=== PATIENT | female | born 1965 | race Caucasian/White ===

== ENCOUNTER 2017-01-30 22:33 | Emergency (ER) | payer OTHER ==
--- NOTE | ~2017-01-30 | EKG ---
PATIENT: PAU BAUMAN UNIT #: [id number] Ventricular Rate: 89 BPM Atrial Rate: 89 BPM P-R Interval: 178 ms QRS Duration: 84 ms Q-T Interval: 398 ms QTC Calculation(Bezet): 484 ms P Simms: 56 degrees Calculated R Simms: -34 degrees Calculated T Simms: 39 degrees Diagnosis Line: Normal sinus rhythm Diagnosis Line: Possible Left atrial enlargement Diagnosis Line: Left axis deviation Diagnosis Line: Inferior infarct , age undetermined Diagnosis Line: Abnormal ECG Diagnosis Line: When compared with ECG of 24-MAY-2015 21:10, Diagnosis Line: Inferior infarct is now Present Diagnosis Line: Confirmed by NGOC JUAN MD ([id number]) on 01/31/2017 Diagnosis Line: 5:46:15 PM INTERPRETING MD: YESSICA QUEVEDO
[~2017-01-30 22:33] MED LIST: CATAFLAM50 MG PO; CIPRO PO; DENTAL BALLS PO; KEFLEX500 M1 PO; LORTAB 5/500 TA1 TA1 PO; LORTAB 5/500 TA1 TA2 PO; NAPROXEN375 M1 PO; NEURONTIN PO; PEN-VEE K PO; PENICILLIN PO; PYRIDIUM PO; ROXICODONE5 MG PO; VICODIN 5/1 TAB 5/50 PO; VOLTAREN50 MG PO; ZOFRAN PO
[2017-01-30 22:52] LABS: BASOPHIL# 0.1 X10e3 (0-0.3); BASOPHIL% 1.1 % (0-2.5); DIFF IND NO; EOSINOPHIL# 0.2 X10e3 (0-0.7); EOSINOPHIL% 3.2 % (0.0-7.0); HEMATOCRIT 54.1 % (35.0-45.0); HEMOGLOBIN 17.3 gm/dL (12.0-16.0); LYMPHOCYTE% 31.3 % (17.0-45.0); MEAN CELL VOLUME 102.9 FL (83-96); MEAN CORPUSCULAR HEMOGLOBIN 32.9 PG (28-34); MEAN PLATELET VOLUME 9.3 FL (6.5-11.5); MONOCYTE# 0.5 X10e3 (0-1.0); MONOCYTE% 7.9 % (3.0-12.0); NEUTROPHIL# 3.6 X10e3 (1.5-7.1); NEUTROPHIL% 56.5 % (40-75); PLATELET COUNT 214 X10e3 (140-420); RED BLOOD COUNT 5.26 X10e (3.90-5.30); RED CELL DISTRIBUTION WIDTH 14.3 % (11.0-15.5); WHITE BLOOD COUNT 6.3 X10e3 (4.0-10.5)
[2017-01-30 23:23] LABS: ACETAMINOPHEN <10 ug/mL; ALBUMIN SERUM 4.1 g/dL (3.5-5.0); ALCOHOL BLOOD 264 mg/dL (0); ALKALINE PHOSPHATASE 74 U/L (32-92); ALT (SGPT) 61 U/L (10-40); AST (SGOT) 95 U/L (10-42); BILIRUBIN, DIRECT 0.2 mg/dL (0.0-0.2); BILIRUBIN,INDIRECT 0.4 mg/dL (0.0-0.9); BILIRUBIN,TOTAL 0.6 mg/dL (0.2-2.0); BLOOD UREA NITROGEN 8 mg/dL (9-23); BUN/CREATININE RATIO 11.42; CALCIUM SERUM 9.3 mg/dL (8.4-10.2); CARBON DIOXIDE 22 mmol/L (22-31); CHLORIDE 108 mmol/L (100-111); CREATININE SERUM 0.7 mg/dL (0.6-1.4); GLOM FILT RATE Estimated ABOVE60 mL/min (>60); GLUCOSE FASTING 95 mg/dL (70-110); POTASSIUM 3.9 mmol/L (3.5-5.1); PROTEIN TOTAL SERUM 8.4 g/dL (6.0-8.3); SALICYLATE <4.0 mg/dL; SODIUM 142 mmol/L (135-145)
[2017-05-01] MEDS ORDERED: HYDROCODON-ACE1 EAC5 PO (12:37)
[2017-05-01] MEDS ORDERED: ALBUTEROL17 GM INH (12:37)
[2017-05-01] MEDS ORDERED: GABAPENTIN300 MG PO (12:38)
[2017-05-01] MEDS ORDERED: FLEXERIL10 MG PO (12:38)
[2017-05-01] MEDS ORDERED: ADVAIR 250-501 EAC1 INH (12:38)
== END 2017-01-31 01:47 | disposition home or self-care (01) ==
LOC: CED 22:33
PROVIDERS: Emergency Medicine
DX: F10.129 Alcohol abuse with intoxication, unspecified (principal); F41.9 Anxiety disorder, unspecified; B19.20 Unspecified viral hepatitis C without hepatic coma; F17.210 Nicotine dependence, cigarettes, uncomplicated; Z86.14 Personal history of Methicillin resistant Staphylococcus aureus infection; Z88.2 Allergy status to sulfonamides
CPT/HCPCS: 36415; 80048; 80076; 85025; 93005; 96360; 99284; G0480

== ENCOUNTER 2017-04-12 12:18 | Emergency (ER) | payer OTHER ==
--- NOTE | ~2017-04-12 | CR107 ---
[facility] A Service of [facility] & [facility] [place] RADIOLOGY TEXT RESULTS PATIENT: PAU BAUMAN LOCATION: CFTX : 65 UNIT #: [id number] AGE: [address]: POLO MCCORD SEX: F ORDER DR: [id number] [facility] [address] [place], [place] [address] [id number] MR#: [id number] Acc #: [id number] NAME: PAU BAUMAN. : 1965 SEX: F STUDY DATE/TIME: 04/12/2017 14:01 UNIT: [facility] ROOM: STUDY DESCRIPTION: CR Femur 2 Views Rt Attending Physician: Polo Mccord Aprn Ordering Physician: Polo Mccord Aprn Primary Care Physician: No Primary Care Physician MEDICAL IMAGING REPORT This report is preliminary unless electronic signature is present EXAM Right femur AP and lateral HISTORY Hip and leg pain after fall 5 days ago. FINDINGS AP and lateral views of the right femur demonstrate subtle transverse nondisplaced fracture of the superior margin of the greater trochanter 1.5 cm from its proximal tip. Right hip prosthetic component alignment appears satisfactory. An acetabular fixation screw extends 2 cm beyond the medial margin of the acetabulum. Remainder of the femur is unremarkable. Dictated by... Byron Dowling M.D. THIS IS AN ELECTRONICALLY VERIFIED REPORT Byron Dowling M.D. at 04/12/2017 10:38 PM PERLA/michelle TD: 04/12/2017 17:04 JOB #: [id number] MEDICAL IMAGING REPORT Page 1 of 1 COPY
--- NOTE | ~2017-04-12 | CR151 ---
[facility] A Service of [facility] & [facility] RADIOLOGY TEXT RESULTS PATIENT: PAU BAUMAN LOCATION: CFTX : 65 UNIT #: [id number] AGE: [address]: POLO MCCORD SEX: F ORDER DR: [id number] [facility] [address] [place], [place] [address] [id number] E MR#: [id number] Acc #: [id number] NAME: PAU BAUMAN : 1965 SEX: F STUDY DATE/TIME: 04/12/2017 13:59 UNIT: [facility] ROOM: STUDY DESCRIPTION: CR Hip Min 2 Views Rt Attending Physician: Polo Mccord Aprn Ordering Physician: Polo Mccord Aprn Primary Care Physician: No Primary Care Physician MEDICAL IMAGING REPORT This report is preliminary unless electronic signature is present EXAM Right hip 2 views HISTORY Right hip pain after fall 5 days ago. FINDINGS 2 views of the right hip demonstrate subtle nondisplaced transverse fracture of the superior margin of the greater trochanter 1.5 cm from its proximal tip. The fracture line is fairly well marginated and this is of uncertain age but this could be a recent fracture. Right hip arthroplasty components appear in stable position compared to 10/04/2013 although the distal tip of the femoral component is not included. A fixation screw in the acetabular component extends 2 cm beyond the medial margin of the acetabulum. Old healed fracture deformities left pubic bone and left ischium tuberosity. IMPRESSION 1. Subtle nondisplaced transverse fracture through the superior margin of the right greater trochanter 1.5 cm from its tip. 2. Visualized prosthetic hip component alignment appears satisfactory. 3. 1 of the acetabular fixation screws extends 2 cm beyond the medial margin of the acetabulum. 4. Old healed fracture deformities left ischium tuberosity and left pubic bone. Dictated by... Byron Dowling M.D. THIS IS AN ELECTRONICALLY VERIFIED REPORT Byron Dowling M.D. at 04/12/2017 10:38 PM DFGinny/michelle STS. [facility] A Service of [facility] & [facility] RADIOLOGY TEXT RESULTS PATIENT: PAU BAUMAN LOCATION: [facility] : [birth year] UNIT #: [id number] AGE: [address]: POLO MCCORD SEX: F ORDER DR: TD: 04/12/2017 16:58 JOB #: [id number] MEDICAL IMAGING REPORT Page 1 of 1 COPY
[2017-05-01] MEDS ORDERED: HYDROCODON-ACE1 EAC5 PO (12:37)
[2017-05-01] MEDS ORDERED: ALBUTEROL17 GM INH (12:37)
[2017-05-01] MEDS ORDERED: FLEXERIL10 MG PO (12:38)
[2017-05-01] MEDS ORDERED: ADVAIR 250-501 EAC1 INH (12:38)
[2017-05-01] MEDS ORDERED: GABAPENTIN300 MG PO (12:38)
== END 2017-04-12 18:21 | disposition home or self-care (01) ==
LOC: CFTX 12:18 → CED 12:18 → CFTX 14:36
DX: S72.114A Nondisplaced fracture of greater trochanter of right femur, initial encounter for closed fracture (principal); J44.9 Chronic obstructive pulmonary disease, unspecified; F31.9 Bipolar disorder, unspecified; F17.210 Nicotine dependence, cigarettes, uncomplicated; Z88.2 Allergy status to sulfonamides; W01.0XXA Fall on same level from slipping, tripping and stumbling without subsequent striking against object, initial encounter; Y92.009 Unspecified place in unspecified non-institutional (private) residence as the place of occurrence of the external cause
CPT/HCPCS: 73502; 73552; 99284

== ENCOUNTER → 2017-05-01 | Day surgery (SDC) | payer MEDICARE, OTHER ==
[~2017-05-01] MED LIST changes: +ADVAIR 250-501 EAC1 INH; +ALBUTEROL17 GM INH; +FLEXERIL10 MG PO; +GABAPENTIN300 MG PO; +HYDROCODON-ACE1 EAC5 PO
--- NOTE | ~2017-05-01 | OR ---
Unit #: [id number] #: [id number] Patient: PAU BAUMAN [id number] [address] [place], [place] [address] [id number] O MR#: [id number] NAME: PAU BAUMAN ROOM: Date of Procedure: 05/01/2017 Admission Date: 05/01/2017 Surgeon: Eyad Rojas M.D. : 1965 Attending Physician: Eyad Rojas M.D. Primary Care Physician: Warren Agarwal M.D. SURGERY CENTER OPERATIVE NOTE PROCEDURE PERFORMED Lumbar epidural steroid injection under x-ray guided needle placement with provider administered conscious sedation. PREOPERATIVE DIAGNOSES 1. Acute lumbar radiculitis. 2. Degenerative joint disease, lumbosacral spine. 3. Degenerative disk disease, lumbosacral spine. 4. Spinal stenosis, lumbosacral spine. INDICATIONS FOR PROCEDURE The patient presents today with longstanding history of chronic lumbar radicular pain secondary to her underlying degenerative processes. She is generally fairly well managed medically with ongoing continuous conservative measures, which include anti-inflammatory medications. She has in the past experienced exacerbations, which broke through this ongoing continuous conservative treatment and did respond to epidural steroid injections with approximately 80% to 100% relief for 8 weeks or greater. She is currently experiencing exacerbation. Her last exacerbation have not occurred in 2012. She states her exacerbating pain is similar to past, it is compatible with her x-ray studies and has broken through her ongoing continuous treatment. After discussing risks and benefits of proceeding today with a lumbar approach epidural steroid injection with return to this clinic in 2 weeks, the patient agreed this would be the appropriate course of action. DESCRIPTION OF PROCEDURE She was then taken to the operating room, where she was prepped and draped in a sterile manner. Standard monitors were applied. She was sedated with 2 mg of IV Versed and lumbar epidural space accessed at the L4-L5 level using loss of resistance technique and x-ray guidance. Needle placement was confirmed with injection of 2 mL of Omnipaque. There was good superior and inferior flow at this L4-L5 level needle placement. Following successful needle placement confirmation, the patient received an injectate containing 2 mL normal saline, 2 mL of 0.25% bupivacaine, and 80 mg of methylprednisolone. She tolerated this procedure well. She was discharged home with followup instructions, which include return dates as described above. Dictated by... Eyad Rojas M.D. Unit #: [id number] #: [id number] Patient: PAU BAUMAN G/modl TD: 05/02/2017 01:23 JOB #: [id number] CC: Esau Cuadra M.D. SURGERY CENTER OPERATIVE NOTE Page 1 of 1 X Sanjay Rojas MD X PROCEDURE OPERATIVE NOTE
== END | disposition home or self-care (01) ==
LOC: CCSC 12:18
DX: G89.29 Other chronic pain (principal); M51.17 Intervertebral disc disorders with radiculopathy, lumbosacral region; M47.27 Other spondylosis with radiculopathy, lumbosacral region; M48.07 Spinal stenosis, lumbosacral region; J44.9 Chronic obstructive pulmonary disease, unspecified; I25.2 Old myocardial infarction; M19.90 Unspecified osteoarthritis, unspecified site; F17.210 Nicotine dependence, cigarettes, uncomplicated; Z88.2 Allergy status to sulfonamides; Z79.51 Long term (current) use of inhaled steroids; Z79.891 Long term (current) use of opiate analgesic; Z98.890 Other specified postprocedural states
CPT/HCPCS: J1040; J2250; J3010

== ENCOUNTER → 2017-05-15 | Day surgery (SDC) | payer OTHER ==
--- NOTE | ~2017-05-15 | OR ---
Unit #: [id number] #: [id number] Patient: PAU BAUMAN [id number] [address] [place], [place] [address] [id number] O MR#: [id number] NAME: PAU BAUMAN ROOM: Date of Procedure: 05/15/2017 Admission Date: 05/15/2017 Surgeon: Eyad Rojas M.D. : 1965 Attending Physician: Sanjay Rojas Primary Care Physician: Warren Agarwal M.D. SURGERY CENTER OPERATIVE NOTE PROCEDURE PERFORMED Lumbar epidural steroid injection under x-ray guided needle placement with provider administered conscious sedation. PREOPERATIVE DIAGNOSES 1. Acute lumbar radiculitis. 2. Chronic lumbar radicular pain. 3. Degenerative joint disease, lumbosacral spine. 4. Degenerative disk disease, lumbosacral spine. INDICATIONS FOR PROCEDURE The patient presents today status post one previous lumbar approach epidural steroid injection for an acute radiculitis, which had failed to respond to conservative therapy. The patient has previously gotten relief from epidural steroid injections from her radicular pain; however, it required more than one injection. She presents today stating that she did not get very much relief with the initial injection and what relief she did get was short lasting and since she has had return of symptoms since her initial visit. After discussing risks and benefits of proceeding today with second lumbar approach epidural steroid injection, the patient agreed this would be the appropriate course of action. We also discussed potential referral for medical management if this second epidural failed her. We did schedule her for long-term follow up on 08/21/2017, however, I doubt that Ms. Bauman will respond very well to this epidural steroid injection and suspect that she may will need to be referred on for medical management. DESCRIPTION OF PROCEDURE Following these discussions, the patient was taken to the operating room, where she was prepped and draped in sterile manner. Standard monitors were applied. She was sedated with 2 mg of IV Versed initially and required an additional 2 mg of IV Versed throughout the duration of procedure. Lumbar epidural space was accessed at the L4-L5 level using loss of resistance technique and x-ray guidance. Needle placement was confirmed with injection of 2 mL of Omnipaque. Following successful needle placement confirmation, the patient received an injectate containing 4 mL of normal saline and 80 mg of methylprednisolone. She tolerated this procedure well. She was discharged home with followup instructions, which included offer to return on 08/21/2017. She was instructed if she is asymptomatic at that time and/or if she did not receive relief from this injection that she was to not keep that appointment. Total x-ray time for today's procedure was 5 seconds. Unit #: [id number] #: [id number] Patient: PAU BAUMAN Dictated by... Raleigh Davis/brando TD: 05/16/2017 00:06 JOB #: [id number] CC: Esau Cuadra M.D. SURGERY CENTER OPERATIVE NOTE Page 1 of 1 X Sanjay Rojas MD X PROCEDURE OPERATIVE NOTE
== END | disposition home or self-care (01) ==
LOC: CCSC 08:39
DX: G89.29 Other chronic pain (principal); M51.17 Intervertebral disc disorders with radiculopathy, lumbosacral region; M47.27 Other spondylosis with radiculopathy, lumbosacral region; J44.9 Chronic obstructive pulmonary disease, unspecified; I25.2 Old myocardial infarction; M19.90 Unspecified osteoarthritis, unspecified site; F17.210 Nicotine dependence, cigarettes, uncomplicated; Z88.2 Allergy status to sulfonamides; Z79.51 Long term (current) use of inhaled steroids; Z79.891 Long term (current) use of opiate analgesic; Z79.899 Other long term (current) drug therapy; Z98.890 Other specified postprocedural states
CPT/HCPCS: J1040; J2250